=== PATIENT | female | born 1960 | race Two or more races ===

== ENCOUNTER 2018-01-31 08:35 | Emergency (ER) | payer OTHER ==
[~2018-01-31] VITALS: Ht 157.5 cm; Wt 74.4 kg
[2018-01-31] MEDS ORDERED: NITROFURANTOIN100 MG (09:06)
[2018-01-31] MEDS ORDERED: DICYCLOMINE HCL20 MG (09:07)
[2018-01-31] MEDS ORDERED: LOTRIMIN AF12 GM TP (09:08)
== END 2018-01-31 13:54 | disposition home or self-care (01) ==
LOC: ER 08:35
DX: K29.70 Gastritis, unspecified, without bleeding (principal); N39.0 Urinary tract infection, site not specified

== ENCOUNTER 2021-10-01 07:52 | Outpatient (CLI) | payer OTHER ==
[~2021-10-01 07:52] MED LIST: DICYCLOMINE HCL20 MG; LOTRIMIN AF12 GM TP; NITROFURANTOIN100 MG
== END 2021-10-01 08:04 | disposition home or self-care (01) ==
LOC: TOM 07:52
PROVIDERS: ATTEND Orthopaedic Surgery Orthopaedic Surgery of the Spine
DX: C25.3 Malignant neoplasm of pancreatic duct (principal)

== ENCOUNTER → 2023-11-02 | Outpatient (CLI) | payer OTHER | END | disposition home or self-care (01) | LOC: TOM 07:43 | DX: R10.84 Generalized abdominal pain (principal); C92.40 Acute promyelocytic leukemia, not having achieved remission ==

== ENCOUNTER 2023-12-05 07:09 | Outpatient (CLI) | payer OTHER | END 2023-12-05 07:10 | disposition home or self-care (01) | LOC: NUCLEAR 07:09 | PROVIDERS: ATTEND Internal Medicine | DX: I20.9 Angina pectoris, unspecified (principal) | CPT/HCPCS: 78452; 93017; A9500 ==

== ENCOUNTER 2024-04-27 08:22 | Outpatient (CLI) | payer OTHER | END 2024-04-27 08:41 | disposition home or self-care (01) | LOC: TOM 08:22 | PROVIDERS: ATTEND Internal Medicine | DX: R07.89 Other chest pain (principal); I10 Essential (primary) hypertension ==

== ENCOUNTER 2024-06-22 07:04 | Outpatient (CLI) | payer OTHER | END 2024-06-22 07:25 | disposition home or self-care (01) | LOC: SONOGRAMA 07:04 | DX: R10.31 Right lower quadrant pain (principal); R10.9 Unspecified abdominal pain; K80.00 Calculus of gallbladder with acute cholecystitis without obstruction ==

== ENCOUNTER 2024-10-26 06:14 | Outpatient (CLI) | payer OTHER | END 2024-10-26 06:21 | disposition home or self-care (01) | LOC: TOM 06:14 | DX: R30.0 Dysuria (principal); R10.823 Right lower quadrant rebound abdominal tenderness | CPT/HCPCS: 74178; Q9965 ==

== ENCOUNTER 2024-11-30 09:40 | Outpatient (CLI) | payer OTHER | END 2024-11-30 09:42 | disposition home or self-care (01) | LOC: NUCLEAR 09:40 | DX: M81.0 Age-related osteoporosis without current pathological fracture (principal) ==

== ENCOUNTER 2024-12-14 08:40 | Outpatient (CLI) | payer OTHER | END 2024-12-14 11:07 | disposition home or self-care (01) | LOC: RAD 08:40 | DX: I10 Essential (primary) hypertension (principal) ==

== ENCOUNTER 2024-12-14 08:52 | Outpatient (CLI) | payer OTHER | END 2024-12-14 09:10 | disposition home or self-care (01) | LOC: MAMO-SONO 08:52 | DX: N64.4 Mastodynia (principal); N63.0 Unspecified lump in unspecified breast; Z12.31 Encounter for screening mammogram for malignant neoplasm of breast ==

== ENCOUNTER → 2025-02-01 | Outpatient (CLI) | payer OTHER | END | disposition home or self-care (01) | LOC: TOM 07:53 | DX: C92.41 Acute promyelocytic leukemia, in remission (principal) ==